=== PATIENT | male | born 1980 | race Caucasian/White ===

== ENCOUNTER 2018-03-30 14:56 | Emergency (ER) | payer OTHER ==
[~2018-03-30] VITALS: Ht 172.7 cm; Wt 79.4 kg
[~2018-03-30 14:56] MED LIST: ACET500; AMOX500 PO; CEPH500 PO; CYCL10 PO; DOXY100 PO; EPIN.3I IM; HYDR1TAB94 PO; IBUP400 PO; IBUP600 PO; NAPR500 PO; Naprosyn500 MG PO; PENVK250 PO; PROM25 PO; RXHYDACE PO; RXTOBROPSO OS; SULTRIDS PO; TOBR.3OPSO LEFTEYE; TRAM50 PO; Tylenol325 MG PO
== END 2018-03-30 15:34 | disposition home or self-care (01) ==
LOC: ER 14:56
DX: S61.012A Laceration without foreign body of left thumb without damage to nail, initial encounter (principal); Z23 Encounter for immunization; F17.210 Nicotine dependence, cigarettes, uncomplicated; Z91.030 Bee allergy status; W27.0XXA Contact with workbench tool, initial encounter
CPT/HCPCS: 12001; 90471; 90714; 99282-25